=== PATIENT | female | born 1970 | race Caucasian/White ===

== ENCOUNTER → 2017-04-08 | Outpatient (CLI) | payer MEDICARE, MEDICAID ==
[~2017-04-08] MED LIST: ACET-2043 PO; ALPR-1 PO; CA C1TAB6 PO; CALC1TAB32 PO; CARB-340 OT; CARB15DR74 OP; FLUO-176 PO; FLUO40CA67 PO; FLUT16SP19 NS; LEV112 PO; LEVE-14 PO; LEVO-3 PO; LEVO1TAB31 PO; LEVO75TA73 PO; METR70GE2 PV; MULT1TAB54 PO; RANI-318 PO; SODI50SP4 NS; TOLN150S5 TP; [UNRECOGNIZED DRUG - CODE] TP; [UNRECOGNIZED DRUG - CODE] TP; [UNRECOGNIZED DRUG - CODE] TP; [UNRECOGNIZED DRUG - OTHER]
--- NOTE | 2017-04-09 08:26 | RADIOLOGY IMAGING REPORT ---
FACILITY: [facility] - [place] PATIENT NAME: ATIF KAHN : [id number] MR: [id number] V: [id number] EXAM DATE: [id number] ORDERING PHYSICIAN: FORSET GILLETTE TECHNOLOGIST: Anne-Marie Rain PROCEDURE:BILATERAL DIGITAL SCREENING MAMMOGRAM WITH CAD ASSISTED INTERPRETATION AND 3D BREAST TOMOSYNTHESIS. COMPARISON:Prior mammograms dated 03/03/16, 02/14/15, 02/09/14, 02/08/13, 02/03/12 and 01/14/11. INDICATIONS:SCREENING. FINDINGS: There is predominant fatty replacement throughout the breasts. The parenchymal pattern has remained stable when allowing for difference in mammographic technique and patient positioning. There is no evidence of malignant appearing mass, malignant appearing calcification or other secondary sign of malignancy in either breast. DIAGNOSTIC CATEGORY 1--NEGATIVE. RECOMMENDATIONS: ROUTINE MAMMOGRAM AND CLINICAL EVALUATION. IMPRESSION: Bi-RADS 1: No significant abnormality is seen. Images were reviewed with R2CAD and 3D breast tomosynthesis. Dictated by: Perla Sandoval M.D. on 04/08/2017 at 16:12 Transcribed by: KRISTEN on 04/08/2017 at 18:29 Approved by: Perla Sandoval M.D. on 04/09/2017 at 8:25 [facility]
== END ==
LOC: MAMO 00:40
PROVIDERS: ATTEND Family Medicine
DX: Z12.31 Encounter for screening mammogram for malignant neoplasm of breast (principal)
CPT/HCPCS: 77063; 77067

== ENCOUNTER → 2017-10-14 | Outpatient (CLI) | payer MEDICARE, MEDICAID ==
[~2017-10-14] MED LIST changes: +BENZ100C4 PO; +CALC-852 PO; +GUAI-206 PO; +LEVO88TA45 PO
[2017-10-14 09:44] LABS: PLATELET COUNT, AUTOMATED 267 K/uL (150-450)
== END ==
LOC: LAB 09:22
PROVIDERS: ATTEND Family Medicine
DX: E03.9 Hypothyroidism, unspecified (principal)
CPT/HCPCS: 36415; 82040; 82247; 82310; 82374; 82435; 82565; 82947; 84075; 84132; 84155; 84295; 84443; 84450; 84460; 84520; 85025

== ENCOUNTER → 2017-10-28 | Outpatient (CLI) | payer MEDICARE, MEDICAID | LOC: US 02:23 | PROVIDERS: ATTEND Family Medicine | DX: Q90.9 Down syndrome, unspecified (principal) | CPT/HCPCS: 93306 ==

== ENCOUNTER → 2018-04-18 | Outpatient (CLI) | payer MEDICARE, MEDICAID ==
--- NOTE | 2018-04-19 09:01 | RADIOLOGY IMAGING REPORT ---
FACILITY: [facility] - [place] PATIENT NAME: ATIF KAHN : [id number] MR: [id number] V: [id number] EXAM DATE: ORDERING PHYSICIAN: FOREST GILLETTE TECHNOLOGIST: Anne-Marie Rain PROCEDURE:BILATERAL DIGITAL SCREENING MAMMOGRAM WITH CAD ASSISTED INTERPRETATION & 3D TOMOSYNTHESIS COMPARISON:Prior mammograms 04/08/17, 03/03/16, 02/14/15, 02/09/14, 02/08/13, 02/03/12. INDICATIONS:SCREENING FINDINGS: The breasts are almost entirely fatty. The parenchymal pattern has remained stable allowing for difference in mammographic technique & patient positioning. DIAGNOSTIC CATEGORY 1--NEGATIVE. RECOMMENDATIONS: ROUTINE MAMMOGRAM AND CLINICAL EVALUATION. IMPRESSION: BIRADS 1: Negative. No significant abnormality is seen. Dictated by: Perla Sandoval M.D. on 04/18/2018 at 18:06 Transcribed by: RILEY on 04/19/2018 at 7:55 Approved by: Perla Sandoval M.D. on 04/19/2018 at 9:00 [facility]
== END ==
LOC: MAMO 03:40
PROVIDERS: ATTEND Family Medicine
DX: Z12.31 Encounter for screening mammogram for malignant neoplasm of breast (principal)
CPT/HCPCS: 77063; 77067

== ENCOUNTER → 2018-06-23 | Outpatient (CLI) | payer MEDICARE, MEDICAID | LOC: LAB 11:21 | PROVIDERS: ATTEND Family Medicine | DX: E03.9 Hypothyroidism, unspecified (principal) | CPT/HCPCS: 36415; 84443 ==

== ENCOUNTER → 2018-07-18 | Outpatient (REF) | payer MEDICARE, MEDICAID ==
[2018-07-18 15:09] LABS: PLATELET COUNT, AUTOMATED 254 K/uL (150-450)
== END ==
PROVIDERS: ATTEND Family Medicine
DX: M79.671 Pain in right foot (principal)
CPT/HCPCS: 82040; 82247; 82310; 82374; 82435; 82565; 82947; 84075; 84132; 84155; 84295; 84450; 84460; 84520; 84550; 85025; 86140

== ENCOUNTER → 2018-07-18 | Outpatient (CLI) | payer MEDICARE, MEDICAID ==
--- NOTE | 2018-07-18 16:13 | RADIOLOGY IMAGING REPORT ---
FACILITY: [facility] PATIENT NAME: Kallie Shelton : 1970 MR: [id number] V: [id number] EXAM DATE: ORDERING PHYSICIAN: CROW VILLASENOR TECHNOLOGIST: Location: [facility] Patient: Kallie Shelton : 1970 Visit/Account:[id number] Date of Sevice: 07/18/2018 INDICATION: . Pain and swelling of the medial side of the foot near the big toe x2 days. Evaluate fo r osteomyelitis. DATE: 07/18/2018 3:56 PM. TECHNIQUE: MR FOOT RT W/O CON. Multisequence, multi planar noncontrast MR imaging was performed of th e right foot. COMPARISON: None available. FINDINGS: Subcutaneous edema as extensive on the dorsum of the foot. There is no discrete fluid colle ction or abscess. A skin defect or sinus tract is not identified. There is a large effusion at the first MTP joint. Minimal edema within the first metatarsal head is l ikely reactive. Marrow signal is otherwise normal. The flexor and extensor tendons are intact. IMPRESSION: 1. Extensive edema on the dorsum of the foot but no discrete fluid collection or abscess. 2. Large effusion at the first MTP joint is nonspecific. The mild edema within the first metatarsal h ead is likely reactive. 3. No definite findings of osteomyelitis. Report Dictated By: Itz Madrigal MD at 07/18/2018 3:56 PM Report E-Signed By: Itz Madrigal MD at 07/18/2018 4:08 PM WSN:[id number]
== END ==
LOC: RAD 14:40
PROVIDERS: ATTEND Family Medicine
DX: R60.0 Localized edema (principal)

== ENCOUNTER 2018-10-04 11:15 | Outpatient (RCR) | payer MEDICARE, MEDICAID ==
--- NOTE | 2018-09-06 10:15 | PT INITIAL EVALUATION ---
MEDICAL DIAGNOSIS: Z91.81 Hx of falls TREATMENT DIAGNOSIS: Same DATE OF ONSET: 01/27/18 SUBJECTIVE: Kallie Davis (Maryann) presents to PT for altered gait and balance with a fall when bending forward. Her [employer] aides report her gait has been diminishing over the last half year. Yareli had been using a cane last fall but now ambulates with [employer]OR OF [employer]GRIC[employer]URE. 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 ROM: LE's PROM WNL except ankles, -10 deg. PROM DF. Strength: Quads 4-/5, hamstrings 4/5, ankle DF 5-/5 B. Special Tests: R eye amblyopia. R eye does track to the R visual field when L eye is covered. Mobility: Independent, sit/stand 3 attempts. Gait: [employer]OR [employer] x1 with B ankle DF control, feet pass each other and sometimes clears the floor. Independent gait with small shuffling steps, turns with stopping, no pelvic WS L or R. Balance: Tinetti Gait and Balance 18, a high fall risk. Yareli lacks WS, trunk control with large forward, retro, lateral steps, no stepping strategies. ASSESSMENT: Kallie Davis (Maryann) presents with high fall risk, altered gait and balance, weakness after a fall. She did well with balance training today. I would like to incorporate R eye tracking to see if this will help her balance. Short Term Goals/Patient's Goals One month: Cane gait with feet almost passing each other, static postural control WNL. Two months: Cane gait with feet passing each other, dynamic WS A/P and turning with control. PLAN: Patient to be seen for Strengthening/condition, Range of Motion, Stretching, Neuromuscular Re-ed, Gait Trg/Balance Trg, Home Exercise Program 2x/Week for 6 Weeks Thank you for this referral. If you have any questions, comments, or concerns about this report or plan, please contact me at . LYLAD
[~2018-10-04 11:15] MED LIST changes: +ALLO100T70 PO; +PRED-1 PO
[2018-10-14] MEDS ORDERED: ALLO100T70 PO (15:53)
== END 2018-10-04 18:00 | disposition home or self-care (01) ==
LOC: PT 11:15
PROVIDERS: ATTEND Family Medicine
DX: R26.89 Other abnormalities of gait and mobility (principal); Z91.81 History of falling
CPT/HCPCS: 97162

== ENCOUNTER → 2018-10-31 | Outpatient (CLI) | payer MEDICARE, MEDICAID | LOC: US 01:07 | PROVIDERS: ATTEND Family Medicine | DX: Q90.9 Down syndrome, unspecified (principal) | CPT/HCPCS: 93306 ==